=== PATIENT | male | born 1940 ===

== ENCOUNTER 2016-10-25 12:35 | Outpatient (RCR) | payer MEDICARE, OTHER ==
[~2016-10-25] VITALS: Ht 162.6 cm; Wt 63.5 kg
== END 2016-10-26 | disposition home or self-care (01) ==
LOC: WCC 12:35
DX: L89.154 Pressure ulcer of sacral region, stage 4 (principal); E11.9 Type 2 diabetes mellitus without complications; I10 Essential (primary) hypertension; E78.5 Hyperlipidemia, unspecified; I50.9 Heart failure, unspecified; Z79.82 Long term (current) use of aspirin
CPT/HCPCS: 11042